=== PATIENT | female | born 1990 | race Caucasian/White ===

== ENCOUNTER 2017-07-15 18:48 | Emergency (ER) | payer OTHER, SELFPAY ==
[~2017-07-15] VITALS: Ht 160 cm; Wt 61.4 kg
[2017-07-15 18:48] VITALS: BP 135/65
[~2017-07-15 18:48] MED LIST: ACET50TA PO; FERR325T3 PO; IBUP-1114 PO; IRON28TA OR; MOTR200T44 PO; PRENTAB8 PO; PRENTAB9 PO; STUATAB PO
== END 2017-07-15 20:15 | disposition left against medical advice (07) ==
LOC: M ED 18:48
DX: Z53.21 Procedure and treatment not carried out due to patient leaving prior to being seen by health care provider (principal)

== ENCOUNTER → 2017-07-18 | Outpatient (REF) | payer BC | LOC: M LAB REF 12:46 | PROVIDERS: ATTEND Obstetrics & Gynecology | DX: O36.80X0 Pregnancy with inconclusive fetal viability, not applicable or unspecified (principal) ==

== ENCOUNTER 2017-07-22 17:50 | Emergency (ER) | payer BC ==
[~2017-07-22] VITALS: Ht 160 cm; Wt 61.4 kg
[2017-07-22] MEDS ORDERED: NS 1,000 ML IV ONE (18:45)
[2017-07-22 19:09] LABS: BASO # 0.1 10^3/uL (0.0-0.2); BASO % 0.3 % (0.0-1.0); EOS # 0.1 10^3/uL (0.0-0.50); EOS % 0.4 % (0.0-3.0); IMMATURE GRANULOCYTE % 0.6 % (0-0); LYMPH # 2.1 10^3/uL (1.5-6.5); LYMPH % 13.3 % (24.0-44.0); MEAN CORPUSCULAR HEMOGLOBIN 24.4 pg (27.0-33.0); MEAN CORPUSCULAR HGB CONC 31.5 g/dl (32.0-36.5); MEAN CORPUSCULAR VOLUME 77.7 fl (80.0-96.0); MONO # 0.8 10^3/uL (0.0-0.8); MONO % 5.1 % (0.0-5.0); NEUTROPHILS # 12.8 10^3/uL (1.8-7.7); NEUTROPHILS % 80.3 % (36.0-66.0); PLATELET COUNT, AUTOMATED 397 10^3/uL (150-450); RED CELL DISTRIBUTION WIDTH 16.3 % (11.5-14.5)
[2017-07-22 20:05] LABS: ANION GAP 10 MEQ/L (8-16); BLOOD UREA NITROGEN 3 MG/DL (7-18); CALCIUM LEVEL 8.8 MG/DL (8.5-10.1); CARBON DIOXIDE LEVEL 24 MEQ/L (21-32); CHLORIDE LEVEL 104 MEQ/L (98-107); CREATININE FOR GFR 0.61 MG/DL (0.55-1.02); GLOMERULAR FILTRATION RATE > 60.0 (>60); GLUCOSE, FASTING 107 MG/DL (70-105); HCG, SERUM QUANTITATIVE 1009 MIU/ML; POTASSIUM SERUM 3.5 MEQ/L (3.5-5.1); SODIUM LEVEL 138 MEQ/L (136-145)
--- NOTE | 2017-07-22 20:10 | REPUSA ---
Clinical history: heavy bleeding. Findings: Real-time transabdominal ultrasound images of the pelvis were obtained. An anteverted uteru s is noted, measuring 8.8 x 6.1 x 6.8 cm. The uterus demonstrates normal echotexture and echogenicity . The endometrial stripe measures 24 mm, and is thickened. No intrauterine gestational sac is identif ied. The right ovary measures 3.0 x 2.0 x 3.2 cm. The left ovary measures 2.0 x 2.7 2.8 cm. No adnexa l masses are seen. Color Doppler flow is seen within both ovaries. There is no evidence of free fluid . Impression: Thickened echogenic endometrium. No evidence of an intrauterine gestation. Findings are m ost suspicious for an in progress. Follow-up is recommended as clinically indicated.
[2017-07-22 20:30] VITALS: BP 129/75
== END 2017-07-22 20:38 | disposition home or self-care (01) ==
LOC: M ED 17:50
DX: O03.9 Complete or unspecified spontaneous abortion without complication (principal); J45.909 Unspecified asthma, uncomplicated; O09.291 Supervision of pregnancy with other poor reproductive or obstetric history, first trimester; Z3A.00 Weeks of gestation of pregnancy not specified

== ENCOUNTER → 2017-07-25 | Outpatient (REF) | payer BC | LOC: M LAB REF 17:03 | PROVIDERS: ATTEND Obstetrics & Gynecology | DX: O03.9 Complete or unspecified spontaneous abortion without complication (principal) ==

== ENCOUNTER → 2017-08-09 | Outpatient (REF) | payer BC ==
[2017-08-09 13:09] LABS: HCG, SERUM QUANTITATIVE 5 MIU/ML
== END ==
LOC: M LAB REF 12:03
DX: O03.9 Complete or unspecified spontaneous abortion without complication (principal)
CPT/HCPCS: 84702

== ENCOUNTER → 2017-08-19 | Outpatient (REF) | payer BC ==
[2017-08-19 14:32] LABS: HCG, SERUM QUANTITATIVE 2 MIU/ML
== END ==
LOC: M LAB REF 13:08
DX: O03.9 Complete or unspecified spontaneous abortion without complication (principal)
CPT/HCPCS: 84702

== ENCOUNTER → 2017-11-18 | Outpatient (REF) | payer BC ==
[2017-11-18 15:30] LABS: HCG, SERUM QUANTITATIVE 30393 MIU/ML
== END ==
LOC: M LAB REF 13:33
DX: O36.80X0 Pregnancy with inconclusive fetal viability, not applicable or unspecified (principal)
CPT/HCPCS: 84702

== ENCOUNTER → 2017-12-12 | Outpatient (REF) | payer BC ==
[2017-12-12 20:29] LABS: CHLAMYDIA DNA AMPLIFICATION NEGATIVE (NEGATIVE); GC DNA AMPLIFICATION NEGATIVE (NEGATIVE)
== END ==
LOC: M LAB REF 16:37
DX: Z34.81 Encounter for supervision of other normal pregnancy, first trimester (principal)
CPT/HCPCS: 87086

== ENCOUNTER → 2018-09-12 | Outpatient (REF) | payer BC ==
[~2018-09-12] MED LIST changes: -ACET50TA PO; +MAPA500T2 PO
[2018-09-12 13:37] LABS: HEMOGLOBIN 12.5 g/dl (12.0-15.5); MEAN CORPUSCULAR HEMOGLOBIN 26.5 pg (27.0-33.0); MEAN CORPUSCULAR HGB CONC 32.9 g/dl (32.0-36.5); MEAN CORPUSCULAR VOLUME 80.7 fl (80.0-96.0); PLATELET COUNT, AUTOMATED 373 10^3/uL (150-450); RED BLOOD COUNT 4.71 10^6/uL (4.00-5.40); WHITE BLOOD COUNT 11.4 10^3/uL (4.0-10.0)
[2018-09-12 14:31] LABS: HEPATITIS B SURFACE ANTIGEN NEGATIVE (NEGATIVE); HEPATITIS C VIRUS ABY INDEX 0.1 INDEX (<0.8); HIV 1&2 SCREEN CENTAUR NEGATIVE (NEGATIVE); RUBELLA IgG QUALITATIVE IMMUNE (IMMUNE)
== END ==
LOC: M LAB REF 12:49
PROVIDERS: ATTEND Obstetrics & Gynecology
DX: Z34.82 Encounter for supervision of other normal pregnancy, second trimester (principal); Z3A.00 Weeks of gestation of pregnancy not specified

== ENCOUNTER → 2018-11-25 | Outpatient (CLI) | payer BC ==
[2018-11-25 14:37] LABS: HEMATOCRIT 35.9 % (36.0-47.0); HEMOGLOBIN 11.3 g/dl (12.0-15.5); MEAN CORPUSCULAR HEMOGLOBIN 26.5 pg (27.0-33.0); MEAN CORPUSCULAR HGB CONC 31.5 g/dl (32.0-36.5); MEAN CORPUSCULAR VOLUME 84.3 fl (80.0-96.0); PLATELET COUNT, AUTOMATED 345 10^3/uL (150-450); RED BLOOD COUNT 4.26 10^6/uL (4.00-5.40); WHITE BLOOD COUNT 11.9 10^3/uL (4.0-10.0)
== END ==
LOC: M LAB 12:59
PROVIDERS: ATTEND Obstetrics & Gynecology
DX: Z34.82 Encounter for supervision of other normal pregnancy, second trimester (principal); Z3A.00 Weeks of gestation of pregnancy not specified

== ENCOUNTER → 2018-11-28 | Outpatient (REF) | payer BC ==
[2018-11-28 13:17] LABS: CREATININE, URINE 61.3 MG/DL; URINE TOTAL PROTEIN < 5.0 MG/DL (0-12)
[2018-11-28 20:07] LABS: CREATININE 24 HOUR, URINE 1164.7 MG/24HR (600-1800); TOTAL VOLUME, URINE 1900 ML
== END ==
LOC: M LAB REF 11:12
PROVIDERS: ATTEND Obstetrics & Gynecology
DX: Z34.82 Encounter for supervision of other normal pregnancy, second trimester (principal)

== ENCOUNTER → 2018-12-03 | Outpatient (CLI) | payer BC | LOC: M LAB 08:02 | PROVIDERS: ATTEND Obstetrics & Gynecology | DX: R73.02 Impaired glucose tolerance (oral) (principal) ==

== ENCOUNTER → 2019-01-20 | Outpatient (REF) | payer OTHER | LOC: M LAB REF 12:14 | PROVIDERS: ATTEND Obstetrics & Gynecology | DX: Z34.83 Encounter for supervision of other normal pregnancy, third trimester (principal); Z3A.00 Weeks of gestation of pregnancy not specified ==

== ENCOUNTER 2019-02-04 17:32 | Inpatient (IN) | payer OTHER ==
[~2019-02-04] VITALS: Ht 160 cm; Wt 81.8 kg
[2019-02-04] VITALS (16 sets, daily range): BP systolic 99–136; BP diastolic 54–85
[2019-02-04] MEDS ORDERED: PRENTAB9 PO (17:49)
[2019-02-04] MEDS ORDERED: TUMS (17:50)
[2019-02-04] MEDS ORDERED: LR 1,000 ML IV SCH (20:43)
[2019-02-04] MEDS ORDERED: LACTATED RINGER'S 1000 ML IV STA (20:43)
[2019-02-04] MEDS ORDERED: OXYTOCIN DRIP 30 UNITS in APPROPRIATE DILUENT 1 EA IV SCH (20:45)
[2019-02-04 21:54] LABS: HEMATOCRIT 34.5 % (36.0-47.0); HEMOGLOBIN 10.7 g/dl (12.0-15.5); MEAN CORPUSCULAR VOLUME 77.4 fl (80.0-96.0); PLATELET COUNT, AUTOMATED 334 10^3/uL (150-450); RED BLOOD COUNT 4.46 10^6/uL (4.00-5.40); WHITE BLOOD COUNT 15.1 10^3/uL (4.0-10.0)
[2019-02-04] MEDS ORDERED: FENTANYL 2MCG/ML ROPIVACAINE 0.2% IN 0.9% NACL 100ML IVBAG As Ordered ONE (23:00)
[2019-02-04] MEDS ORDERED: ePHEDrine SULFATE 25 MG/5 ML(5MG/ML) SYRINGE IV PRN (23:45)
[2019-02-04] MEDS ORDERED: EPIDURAL COMMENT XX SCH (23:45)
[2019-02-04] MEDS ORDERED: ONDANSETRON 4MG/2ML VIAL (J2405) IV PRN (23:45)
[2019-02-04] MEDS ORDERED: EPIDURAL/PCA KEYS XX PRN (23:45)
[2019-02-04] MEDS ORDERED: FENTANYL/ROPIVACAINE/NACL BAG 100 ML EPIDURAL SCH (23:45)
[2019-02-04] MEDS ORDERED: diphenhydrAMINE INJ 50MG/ML VIAL (J1200) IV PRN (23:45)
[2019-02-04] MEDS ORDERED: LACTATED RINGER'S 1000 ML IV PRN (23:45)
[2019-02-04] MEDS ORDERED: REFRIGERATOR IV KEYS XX PRN (23:45)
[2019-02-04] MEDS ORDERED: NALOXONE INJ 0.4 MG/1 ML VIAL (J2310) IV PRN (23:45)
[2019-02-05] VITALS (21 sets, daily range): BP systolic 89–144; BP diastolic 11–76
[2019-02-05] MEDS ORDERED: ePHEDrine SULFATE 25 MG/5 ML(5MG/ML) SYRINGE As Ordered ONE (00:05)
[2019-02-05 03:04] LABS: CORD GAS HCO3 A 26.7 MEQ/L; CORD GAS O2 SAT A 36.7 %; CORD GAS PCO2 A 50.7 mmHg; CORD GAS PH A 7.34 UNITS; CORD GAS PO2 A 18.2 mmHg; CORD GAS SBC A 22.7 MEQ/L; CORD GAS TCO2 A 28.3 MEQ/L
[2019-02-05 03:05] LABS: CORD GAS ABE V -1.6; CORD GAS HCO3 V 22.5 MEQ/L; CORD GAS O2 SAT V 81.7 %; CORD GAS PCO2 V 36.8 mmHg; CORD GAS PH V 7.405 UNITS; CORD GAS PO2 V 36.1 mmHg; CORD GAS SBC V 22.7 MEQ/L; CORD GAS TCO2 V 23.7 MEQ/L
[2019-02-05] MEDS ORDERED: OXYTOCIN DRIP 30 UNITS in APPROPRIATE DILUENT 1 EA IV SCH (03:12)
[2019-02-05] MEDS ORDERED: MEASLES,MUMPS,RUBELLA VACCINE INJ (MMR-II) (90707) SC SCH (03:15)
[2019-02-05] MEDS ORDERED: IBUPROFEN 800 MG TAB PO PRN (03:15)
[2019-02-05] MEDS ORDERED: ACETAMINOPHEN TAB 650MG DOSE (2X325MG) PO PRN (03:15)
[2019-02-05] MEDS ORDERED: METHYLERGONOVINE MALEATE 0.2 MG TAB PO PRN (03:15)
[2019-02-05] MEDS ORDERED: DOCUSATE SODIUM 100 MG CAP PO PRN (03:15)
[2019-02-05] MEDS ORDERED: DIBUCAINE 1% OINTMENT 30GM TOP PRN (03:15)
[2019-02-05] MEDS ORDERED: RHOGAM 300 MCG (1500 IU) INJ (J2790) IM SCH (03:15)
[2019-02-05] MEDS: IBUPROFEN 600 MG TAB PO PRN ×2 (04:57→19:21)
--- NOTE | 2019-02-05 07:18 | HPE ---
DATE OF ADMISSION: 02/04/2019 Sara is a 29-year-old female, 7, para 3-0-3-3, with an expected date of confinement (EDC) of 02/15/2019, estimated gestational age (EGA) 38-3/7 weeks gestation who presented with complaints of contractions every 4-5 minutes. She was observed in labor and delivery and was found to have advanced cervical dilatation to approximately 5-6 cm dilated. At this point, a decision was made for admission. Her record was reviewed which was essentially unremarkable. She does have circumvallate placenta and possible macrosomia. LABS: Blood type is O negative. She did receive RhoGAM at 28 weeks. Hepatitis is negative, HIV negative, GC and chlamydia negative. 1-hour sugar testing was within normal limits. Her GBS is negative. PAST MEDICAL HISTORY: Significant for asthma. PAST SURGICAL HISTORY: Dilation and curettage times two. SOCIAL HISTORY: She is . Denies any alcohol, drugs or cigarette smoking. REVIEW OF SYSTEMS: Unremarkable. FAMILY HISTORY: Significant for heart disease, hypertension and gastroesophageal reflux. MEDICATIONS: vitamins ALLERGIES: No known drug allergies. PHYSICAL EXAMINATION: Normal-appearing female in no acute distress. HEENT: Grossly within normal limits. Abdomen: Soft, nontender, nondistended. Extremities: No clubbing, cyanosis or edema. Vaginal Exam: 6 cm dilated, 80% effaced, fetus at -3 station, vertex position. Tracing reviewed, category one tracing with contractions every 4-5 minutes. ASSESSMENT: Intrauterine at 38-3/7 weeks gestation in labor. PLAN: Admit to labor and delivery. Routine labs sent. Pain management discussed. Will continue to monitor. Anticipate delivery.
--- NOTE | 2019-02-05 08:32 | DN ---
DATE OF DELIVERY: 02/05/2019 Sara is a 29-year-old female 7, para 3-0-3-3 who is admitted at that 38-4/7 weeks gestation in labor. She progressed to fully dilated, delivered a live male in right occiput anterior position over a first-degree midline laceration. scores are 9 and 9. weight 8 pounds 5 ounces. Placenta delivered spontaneously intact. Three-vessel cord. Perineum, vagina, cervix inspected. First degree perineal laceration was repaired using 2-0 chromic. Estimated blood loss 300 mL. Both mother and baby in stable condition.
[2019-02-05] MEDS: PRENATAL VITAMINS CHEWABLE TABLET PO SCH (10:08)
[2019-02-05] MEDS: ACETAMINOPHEN 500 MG TAB PO PRN (13:16)
[2019-02-06 06:02] VITALS: BP 125/58
[2019-02-06] MEDS: PRENATAL VITAMINS CHEWABLE TABLET PO SCH (07:43)
[2019-02-06] MEDS: ACETAMINOPHEN 500 MG TAB PO PRN (07:44)
[2019-02-06] MEDS ORDERED: IBUP-1022 PO (16:03)
[2019-02-06] MEDS ORDERED: ACET-841 PO (16:03)
== END 2019-02-06 16:50 | disposition home or self-care (01) | DRG 560 ==
LOC: M LDO 17:32 → M LDI 20:55 → M OBS 02-05 06:09
PROVIDERS: ADMIT Obstetrics & Gynecology; ATTEND Obstetrics & Gynecology
PROC: 10E0XZZ Delivery of Products of Conception, External Approach (ICD-10-PCS; principal; 2019-02-05)
PROC: 0HQ9XZZ Repair Perineum Skin, External Approach (ICD-10-PCS; 2019-02-05)
DX: O43.113 Circumvallate placenta, third trimester (principal); Z3A.38 38 weeks gestation of pregnancy; O70.0 First degree perineal laceration during delivery; Z37.0 Single live birth

== ENCOUNTER → 2022-01-10 | Outpatient (REF) | payer OTHER ==
[~2022-01-10] MED LIST changes: +ACET-841 PO; +IBUP-1022 PO; +TUMS
[2022-01-10 17:10] LABS: HEMATOCRIT 40.4 % (36.0-47.0); HEMOGLOBIN 13.4 g/dl (12.0-15.5); MEAN CORPUSCULAR HEMOGLOBIN 27.1 pg (27.0-33.0); MEAN CORPUSCULAR HGB CONC 33.2 g/dl (32.0-36.5); MEAN CORPUSCULAR VOLUME 81.6 fl (80.0-96.0); PLATELET COUNT, AUTOMATED 381 10^3/uL (150-450); RED BLOOD COUNT 4.95 10^6/uL (4.00-5.40); WHITE BLOOD COUNT 10.8 10^3/uL (4.0-10.0)
[2022-01-10 18:26] LABS: HCG, SERUM QUANTITATIVE 25918 MIU/ML; HEPATITIS B SURFACE ANTIGEN NEGATIVE (NEGATIVE); HEPATITIS C VIRUS ABY INDEX 0.1 INDEX (<0.8); HIV 1&2 SCREEN CENTAUR NEGATIVE (NEGATIVE)
== END ==
LOC: M LAB REF 16:30
PROVIDERS: ATTEND Obstetrics & Gynecology
DX: Z32.01 Encounter for pregnancy test, result positive (principal); O36.80X0 Pregnancy with inconclusive fetal viability, not applicable or unspecified

== ENCOUNTER → 2022-03-30 | Outpatient (CLI) | payer BC ==
[2022-03-30 12:45] LABS: BASO % 0.3 % (0.0-1.0); EOS # 0.1 10^3/uL (0.0-0.5); EOS % 0.5 % (0.0-3.0); HEMATOCRIT 33.3 % (36.0-47.0); HEMOGLOBIN 10.6 g/dl (12.0-15.5); LYMPH # 1.6 10^3/uL (1.5-5.0); LYMPH % 15.8 % (24.0-44.0); MEAN CORPUSCULAR HEMOGLOBIN 26.9 pg (27.0-33.0); MEAN CORPUSCULAR HGB CONC 31.8 g/dl (32.0-36.5); MEAN CORPUSCULAR VOLUME 84.5 fl (80.0-96.0); MONO # 0.4 10^3/uL (0.0-0.8); MONO % 4.2 % (2.0-8.0); NEUTROPHILS # 8.1 10^3/uL (1.5-8.5); NEUTROPHILS % 78.6 % (36.0-66.0); PLATELET COUNT, AUTOMATED 311 10^3/uL (150-450); RED BLOOD COUNT 3.94 10^6/uL (4.00-5.40); WHITE BLOOD COUNT 10.2 10^3/uL (4.0-10.0)
== END ==
LOC: M WUC 09:39
PROVIDERS: ATTEND Obstetrics & Gynecology
DX: Z34.82 Encounter for supervision of other normal pregnancy, second trimester (principal)

== ENCOUNTER → 2022-04-02 | Outpatient (REF) | payer BC | LOC: M PLALAB 15:07 | PROVIDERS: ATTEND Obstetrics & Gynecology | DX: Z34.82 Encounter for supervision of other normal pregnancy, second trimester (principal) ==

== ENCOUNTER → 2022-05-29 | Outpatient (REF) | payer BC | LOC: M LAB REF 16:21 | PROVIDERS: ATTEND Obstetrics & Gynecology | DX: Z34.83 Encounter for supervision of other normal pregnancy, third trimester (principal) ==

== ENCOUNTER → 2022-05-30 | Outpatient (CLI) | payer BC ==
[2022-05-30 15:03] LABS: BASO % 0.2 % (0.0-1.0); EOS % 0.3 % (0.0-3.0); HEMATOCRIT 35.9 % (36.0-47.0); HEMOGLOBIN 10.7 g/dl (12.0-15.5); LYMPH # 1.6 10^3/uL (1.5-5.0); LYMPH % 18.3 % (24.0-44.0); MEAN CORPUSCULAR HEMOGLOBIN 24.5 pg (27.0-33.0); MEAN CORPUSCULAR HGB CONC 29.8 g/dl (32.0-36.5); MEAN CORPUSCULAR VOLUME 82.2 fl (80.0-96.0); MONO # 0.6 10^3/uL (0.0-0.8); MONO % 6.9 % (2.0-8.0); NEUTROPHILS # 6.5 10^3/uL (1.5-8.5); NEUTROPHILS % 73.1 % (36.0-66.0); PLATELET COUNT, AUTOMATED 278 10^3/uL (150-450); RED BLOOD COUNT 4.37 10^6/uL (4.00-5.40); WHITE BLOOD COUNT 8.9 10^3/uL (4.0-10.0)
[2022-05-30 15:23] LABS: CREATININE 24 HOUR, URINE 1158.8 MG/24HR (600-1800); CREATININE, URINE 60.2 MG/DL; TOTAL PROTEIN 24 HOUR URINE 163.6 MG/24HR (50-150); URINE TOTAL PROTEIN 8.5 MG/DL (0-12)
[2022-05-30 16:16] LABS: ALT/SGPT 12 U/L (12-78); BILIRUBIN,TOTAL 0.4 MG/DL (0.2-1.0); CREATININE FOR GFR 0.42 MG/DL (0.55-1.30); GLOMERULAR FILTRATION RATE > 60.0 (>60); LDH LACTATE DEHYDROGENASE 165 U/L (84-246); URIC ACID 2.8 MG/DL (2.6-6.0)
== END ==
LOC: M LAB 12:44
PROVIDERS: ATTEND Obstetrics & Gynecology
DX: O14.93 Unspecified pre-eclampsia, third trimester (principal)

== ENCOUNTER 2022-06-15 05:05 | Inpatient (IN) | payer BC ==
[~2022-06-15] VITALS: Ht 160 cm; Wt 78.0 kg
[2022-06-15] VITALS (25 sets, daily range): BP systolic 99–145; BP diastolic 53–80
[~2022-06-15 05:05] MED LIST changes: +BICITRA 30ML SOLN UDC PO ONE; +FERR325T81 PO; +LACTATED RINGER'S 1000 ML IV STA; +LR 1,000 ML IV SCH; +VITA250T26 PO; +ceFAZolin SOD 2 GM in IV 1 EA IV ONE
[2022-06-15] MEDS ORDERED: HOME MED LIST COMPLETE! XX SCH (05:20)
[2022-06-15 06:11] LABS: HEMOGLOBIN 11.4 g/dl (12.0-15.5); MEAN CORPUSCULAR HEMOGLOBIN 24.5 pg (27.0-33.0); MEAN CORPUSCULAR VOLUME 81.5 fl (80.0-96.0); PLATELET COUNT, AUTOMATED 296 10^3/uL (150-450); RED BLOOD COUNT 4.66 10^6/uL (4.00-5.40); WHITE BLOOD COUNT 10.5 10^3/uL (4.0-10.0)
[2022-06-15 06:43] LABS: ALT/SGPT 15 U/L (12-78); BILIRUBIN,TOTAL 0.4 MG/DL (0.2-1.0); CREATININE FOR GFR 0.49 MG/DL (0.55-1.30); GLOMERULAR FILTRATION RATE > 60.0 (>60); LDH LACTATE DEHYDROGENASE 261 U/L (84-246)
[2022-06-15] MEDS ORDERED: SIMETHICONE 80MG CHEW TAB PO PRN (07:30)
[2022-06-15] MEDS ORDERED: RHOGAM 300 MCG (1500 IU) INJ (J2790) IM SCH (07:30)
[2022-06-15] MEDS ORDERED: OXYTOCIN DRIP 30 UNITS in IV 1 EA IV SCH (07:30)
[2022-06-15] MEDS ORDERED: PHENYLephrine 500MCG 5ML (100MCG/ML) SYRINGE As Ordered ONE (07:54)
[2022-06-15] MEDS ORDERED: OXYTOCIN INJ 10 UNITS/ML VIAL (J2590) As Ordered ONE (07:54)
[2022-06-15] MEDS ORDERED: MORPHINE PRES-FREE INJ 10 MG/10 ML VIAL As Ordered ONE (07:54)
[2022-06-15] MEDS ORDERED: KETOROLAC 60MG 2ML VIAL As Ordered ONE (08:04)
[2022-06-15] MEDS ORDERED: ONDANSETRON 4MG 2ML VIAL As Ordered ONE (08:04)
[2022-06-15 08:17] LABS: CORD GAS ABE V -0.5; CORD GAS HCO3 V 23.7 MEQ/L; CORD GAS O2 SAT V 68.6 %; CORD GAS PCO2 V 37.8 mmHg; CORD GAS PH V 7.416 UNITS; CORD GAS PO2 V 25.2 mmHg; CORD GAS SBC V 23.4 MEQ/L; CORD GAS TCO2 V 24.9 MEQ/L
[2022-06-15 08:22] LABS: CORD GAS ABE A 1.5; CORD GAS O2 SAT A 30.9 %; CORD GAS PCO2 A 57.2 mmHg; CORD GAS PH A 7.323 UNITS; CORD GAS PO2 A 15.5 mmHg; CORD GAS SBC A 24.1 MEQ/L; CORD GAS TCO2 A 30.8 MEQ/L
[2022-06-15] MEDS ORDERED: NALOXONE INJ 0.4MG/1ML VIAL (J2310 PER 1MG) IV PRN ×2 (08:40)
[2022-06-15] MEDS ORDERED: fentaNYL 100 MCG/2 ML INJECTION IV PRN (08:40)
[2022-06-15] MEDS ORDERED: diphenhydrAMINE 50MG/ML VIAL IV PRN (08:40)
[2022-06-15] MEDS ORDERED: METOCLOPRAMIDE INJ 10MG/2ML VIAL (J2765 PER 1) IV PRN (08:40)
[2022-06-15] MEDS ORDERED: LR 1,000 ML IV SCH (08:40)
[2022-06-15] MEDS ORDERED: ONDANSETRON 4MG 2ML VIAL IV PRN (08:40)
[2022-06-15] MEDS ORDERED: **NOTE PATIENT COMMENT** MISC XX SCH (08:40)
[2022-06-15] MEDS ORDERED: MEPERIDINE INJ 25 MG/ML VIAL (J2175) IV PRN (08:40)
[2022-06-15] MEDS: DOCUSATE SODIUM 100MG CAPSULE PO SCH ×2 (09:00→20:23)
[2022-06-15] MEDS: PRENATAL VITAMINS CHEWABLE TABLET PO SCH (09:00)
[2022-06-15] MEDS: PERCOCET 5MG/325MG TAB PO PRN (11:42)
[2022-06-15] MEDS: SLF 3 ML SYR IV SCH ×3 (13:28→20:24)
[2022-06-15] MEDS: KETOROLAC 30 MG/ML 1ML VIAL IV SCH ×2 (13:29→20:23)
[2022-06-16 02:19] VITALS: BP 110/66
[2022-06-16] MEDS: KETOROLAC 30 MG/ML 1ML VIAL IV SCH (02:19)
[2022-06-16 05:51] VITALS: BP 117/59
[2022-06-16 07:35] LABS: HEMATOCRIT 28.7 % (36.0-47.0); MEAN CORPUSCULAR HEMOGLOBIN 24.9 pg (27.0-33.0); MEAN CORPUSCULAR HGB CONC 30.7 g/dl (32.0-36.5); MEAN CORPUSCULAR VOLUME 81.1 fl (80.0-96.0); PLATELET COUNT, AUTOMATED 281 10^3/uL (150-450); RED BLOOD COUNT 3.54 10^6/uL (4.00-5.40); WHITE BLOOD COUNT 10.7 10^3/uL (4.0-10.0)
[2022-06-16 07:37] LABS: HEMOGLOBIN 8.8 g/dl (12.0-15.5)
[2022-06-16] MEDS: IBUPROFEN 800 MG TAB PO SCH ×2 (09:49→17:22)
[2022-06-16] MEDS: PRENATAL VITAMINS CHEWABLE TABLET PO SCH (09:50)
[2022-06-16] MEDS: DOCUSATE SODIUM 100MG CAPSULE PO SCH ×2 (09:50→20:58)
[2022-06-16 10:00] VITALS: BP 119/63
[2022-06-16] MEDS ORDERED: PERCOCET PO (11:51)
[2022-06-16 14:00] VITALS: BP 130/77
[2022-06-16] MEDS: PERCOCET 5MG/325MG TAB PO PRN (16:00)
[2022-06-16 18:00] VITALS: BP 116/60
[2022-06-16 22:12] VITALS: BP 117/62
[2022-06-17] MEDS: IBUPROFEN 800 MG TAB PO SCH ×2 (01:40→10:38)
[2022-06-17 01:43] VITALS: BP 105/61
[2022-06-17 05:27] VITALS: BP 111/71
[2022-06-17] MEDS: PRENATAL VITAMINS CHEWABLE TABLET PO SCH (08:18)
[2022-06-17] MEDS: DOCUSATE SODIUM 100MG CAPSULE PO SCH (08:18)
[2022-06-17] MEDS: PERCOCET 5MG/325MG TAB PO PRN (08:19)
[2022-06-17] MEDS ORDERED: MEASLES,MUMPS,RUBELLA VACCINE INJ (MMR-II) (90707) SC.IMMUN ONE (09:00)
[2022-06-17 10:00] VITALS: BP 110/64
== END 2022-06-17 11:15 | disposition home or self-care (01) | DRG 540 ==
LOC: M LDI 05:05 → M OBS 11:41
PROVIDERS: ADMIT Obstetrics & Gynecology; ATTEND Obstetrics & Gynecology
PROC: 10D00Z1 Extraction of Products of Conception, Low, Open Approach (ICD-10-PCS; principal; 2022-06-15 07:30)
DX: O32.1XX0 Maternal care for breech presentation, not applicable or unspecified (principal); O24.429 Gestational diabetes mellitus in childbirth, unspecified control; Z3A.38 38 weeks gestation of pregnancy; Z37.0 Single live birth

== ENCOUNTER → 2023-12-01 | Outpatient (REF) | payer BC ==
[~2023-12-01] MED LIST changes: -BICITRA 30ML SOLN UDC PO ONE; -LACTATED RINGER'S 1000 ML IV STA; -LR 1,000 ML IV SCH; +PERCOCET PO; -ceFAZolin SOD 2 GM in IV 1 EA IV ONE
== END ==
LOC: M LAB REF 18:58
PROVIDERS: ATTEND Physician Assistant Medical
DX: J02.9 Acute pharyngitis, unspecified (principal)